=== PATIENT | male | born 1970 | race Caucasian/White ===

== ENCOUNTER 2018-12-22 03:59 | Emergency (ER) | payer SELFPAY ==
[~2018-12-22] VITALS: Ht 182.9 cm; Wt 90.9 kg
[2018-12-22 04:01] VITALS: BP 147/101
[2018-12-22] MEDS ORDERED: INDO50CA96 PO (04:10)
[2018-12-22] MEDS ORDERED: prednisone 10mg tablet PO ONE (04:15)
[2018-12-22] MEDS ORDERED: indomethacin 25mg capsule PO STA (04:15)
[2018-12-22] MEDS ORDERED: colchicine 0.6mg tablet PO ONE ×2 (04:20→05:30)
--- NOTE | 2018-12-22 04:37 | NUR ---
gave him food and milk with his medication.
== END 2018-12-22 05:07 | disposition home or self-care (01) ==
LOC: ER 04:00
DX: M10.9 Gout, unspecified (principal)
CPT/HCPCS: 99284; J7512

== ENCOUNTER 2019-11-24 19:11 | Emergency (ER) | payer OTHER ==
[~2019-11-24] VITALS: Ht 180.3 cm; Wt 88.6 kg
[~2019-11-24 19:11] MED LIST: INDO50CA96 PO
[2019-11-24 19:43] LABS: BASOPHILS # (AUTO) 0.1 X10'3 (0-0.2); BASOPHILS % (AUTO) 0.7 % (0-1); EOSINOPHILS # (AUTO) 0.3 X10'3 (0-0.9); HEMATOCRIT 46.5 % (42.0-52.0); HEMOGLOBIN 15.5 g/dl (14.0-17.9); LYMPHOCYTES # (AUTO) 1.4 X10'3 (1.1-4.8); LYMPHOCYTES % (AUTO) 16.8 % (21-51); MEAN CORPUSCULAR HEMOGLOBIN 30.8 PG (27.0-31.0); MEAN CORPUSCULAR HGB CONC 33.3 g/dL (33.0-36.5); MEAN CORPUSCULAR VOLUME 92.3 FL (78-98); MEAN PLATELET VOLUME 7.8 FL (7.4-10.4); MONOCYTES # (AUTO) 0.8 X10'3 (0-0.9); MONOCYTES % (AUTO) 9.4 % (2-12); NEUTROPHILS # (AUTO) 5.9 X10'3 (1.8-7.7); NEUTROPHILS % (AUTO) 70.1 % (42-75); PLATELET COUNT 282 X10'3 (140-440); RED BLOOD COUNT 5.04 X10'6 (4.70-6.10); RED CELL DISTRIBUTION WIDTH 13.3 % (11.5-14.5); WHITE BLOOD COUNT 8.5 X10'3 (4.5-11.0)
[2019-11-24 19:53] LABS: ALANINE AMINOTRANSFERASE 40 U/L (12-78); ALBUMIN 4.1 G/DL (3.4-5.0); ALBUMIN/GLOBULIN RATIO 1.2 (1.1-1.5); ALKALINE PHOSPHATASE 83 IU/L (46-116); ANION GAP 10 (8-16); ASPARTATE AMINO TRANSFERASE 19 U/L (10-37); BILIRUBIN,TOTAL 0.2 MG/DL (0.1-1.0); BLOOD UREA NITROGEN 20 MG/DL (7-18); BUN/CREATININE RATIO 17.7 (5.4-32.0); CALCIUM 9.2 MG/DL (8.5-10.1); CHLORIDE 105 MMOL/L (99-107); CREATININE 1.13 MG/DL (0.60-1.10); GLUCOSE 140 MG/DL (70-104); POTASSIUM 4.3 MMOL/L (3.5-5.1); SODIUM 142 MMOL/L (135-145); TOTAL CARBON DIOXIDE 27.3 MMOL/L (24-32); TOTAL PROTEIN 7.5 G/DL (6.4-8.2); eGFR 69 ML/MIN
[2019-11-24 20:00] LABS: TROPONIN I < 0.04 NG/ML (0.0-0.05)
[2019-11-24 23:38] VITALS: BP 136/92
== END 2019-11-24 23:43 | disposition home or self-care (01) ==
LOC: ER 19:12
DX: R07.89 Other chest pain (principal); R53.83 Other fatigue; R11.0 Nausea; R06.02 Shortness of breath; M10.9 Gout, unspecified; F17.200 Nicotine dependence, unspecified, uncomplicated; Z72.89 Other problems related to lifestyle; Z79.899 Other long term (current) drug therapy
CPT/HCPCS: 36415; 71045; 80053; 83880; 84484; 85025; 93005; 99285

== ENCOUNTER 2021-09-09 15:49 | Emergency (ER) | payer SELFPAY ==
[~2021-09-09] VITALS: Ht 185.4 cm; Wt 90.9 kg
[2021-09-09] MEDS ORDERED: LORazepam 2 mg/ml vial IV ONE (16:05)
[2021-09-09] MEDS ORDERED: normal saline 1000ml 1,000 ML IV ONE (16:10)
[2021-09-09 16:17] LABS: BASOPHILS # (AUTO) 0.1 X10'3 (0-0.2); BASOPHILS % (AUTO) 0.7 % (0-1); EOSINOPHILS # (AUTO) 0.2 X10'3 (0-0.9); EOSINOPHILS % (AUTO) 2.3 % (0-6); HEMATOCRIT 46.9 % (42.0-52.0); HEMOGLOBIN 15.8 g/dl (14.0-17.9); LYMPHOCYTES # (AUTO) 2.1 X10'3 (1.1-4.8); LYMPHOCYTES % (AUTO) 24.1 % (21-51); MEAN CORPUSCULAR HEMOGLOBIN 30.4 PG (27.0-31.0); MEAN CORPUSCULAR HGB CONC 33.7 g/dL (33.0-36.5); MEAN CORPUSCULAR VOLUME 90.3 FL (78-98); MEAN PLATELET VOLUME 7.8 FL (7.4-10.4); MONOCYTES % (AUTO) 11.6 % (2-12); NEUTROPHILS # (AUTO) 5.3 X10'3 (1.8-7.7); NEUTROPHILS % (AUTO) 61.3 % (42-75); PLATELET COUNT 314 X10'3 (140-440); RED BLOOD COUNT 5.19 X10'6 (4.70-6.10); RED CELL DISTRIBUTION WIDTH 12.8 % (11.5-14.5); WHITE BLOOD COUNT 8.6 X10'3 (4.5-11.0)
[2021-09-09] MEDS ORDERED: bacitracin 15gm ointment TP ONE (16:30)
[2021-09-09] MEDS ORDERED: TETanus/Pertussis (Acell)/Diphther VAC/PF (Tdap-Adult) 0.5ml syringe IMVAC ONE (16:30)
[2021-09-09 16:33] LABS: ALANINE AMINOTRANSFERASE 35 U/L (12-78); ALBUMIN/GLOBULIN RATIO 1.1 (1.1-1.5); ALKALINE PHOSPHATASE 84 IU/L (46-116); ANION GAP 8 (8-16); ASPARTATE AMINO TRANSFERASE 17 U/L (10-37); BILIRUBIN,TOTAL 0.3 MG/DL (0.1-1.0); BLOOD UREA NITROGEN 18 MG/DL (7-18); BUN/CREATININE RATIO 16.2 (5.4-32.0); CALCIUM 9.3 MG/DL (8.5-10.1); CHLORIDE 105 MMOL/L (99-107); CREATININE 1.11 MG/DL (0.60-1.10); GLUCOSE 206 MG/DL (70-104); POTASSIUM 4.4 MMOL/L (3.5-5.1); SODIUM 142 MMOL/L (135-145); TOTAL CARBON DIOXIDE 29.2 MMOL/L (24-32); TOTAL PROTEIN 7.5 G/DL (6.4-8.2); eGFR 70 ML/MIN
[2021-09-09] MEDS ORDERED: LIDOcaine 1% W/epiNEPHrine 1:100,000 20ml vial IJ ONE (16:35)
[2021-09-09 18:36] VITALS: BP 103/73
== END 2021-09-09 18:39 | disposition home or self-care (01) ==
LOC: ER 15:50
DX: S41.111A Laceration without foreign body of right upper arm, initial encounter (principal); W45.8XXA Other foreign body or object entering through skin, initial encounter; Y93.89 Activity, other specified; Y92.89 Other specified places as the place of occurrence of the external cause; Y99.8 Other external cause status
CPT/HCPCS: 12002; 36415; 73100; 80053; 85025; 90471; 90715; 96361; 96374; 99284; J2060; J7030; 99283; A6258; A6446

== ENCOUNTER 2024-08-27 14:38 | Emergency (ER) | payer OTHER ==
[~2024-08-27] VITALS: Ht 180.3 cm; Wt 65.8 kg
[2024-08-27 14:43] VITALS: BP 150/102; PULSE 72; RESP 15; TEMP 98; O2SAT 98
--- NOTE | 2024-08-27 16:49 | Physician Documentation ---
History of Present Illness ~ Chief Complaint: Eye Pain Stated Complaint: EYE IRRITATED Time Seen by MD: 16:26 Primary Medical Doctor: NONE HPI This is a 54-year-old male who presents with pain, redness, irritation, and foreign body sensation in his right eye after some debris fell into his eye two days ago while working on a vehicle. Patient reports light makes the pain worse , though he reports no change in vision. Patient reports no other acute symptoms or concerns. Medication Reconciliation Allergies: Coded Allergies: No Known Allergies (Unverified , 12/22/18) Scheduled Ciprofloxacin Hcl Ophth* (Ciloxan 0.35 Ophth Drops*), 2 DROP RIGHTEYE Q6H Indomethacin (Indomethacin), 1 CAP PO Q8H Past Medical History Past Medical History: No Pertinent History, Gout Past Surgical History: noncontributory Alcohol Use: Sober Drug Use: none Lives with: Spouse Lives In: Home Review of Systems ROS Right eye pain and redness as stated above in the HPI, otherwise all systems are reviewed and negative. Physical Exam Vital Signs: Temperature: 98.0, Source: Temporal, Heart Rate: 72, Respiratory Rate: 15, BP: 150/102, Pulse Oximetry: 98, Weight: 65.800 Physical Exam VITALS: Reviewed and as above. GENERAL: Alert, nontoxic appearing, no apparent distress. HEENT: PERRLA, EOMI without pain, right eye sclera injected, left eye sclera noninjected, punctate foreign body identified in right cornea approximately at the 8 o'clock position, no Kyle sign, fluorescein uptake at area surrounding foreign body otherwise no focal area of fluorescein uptake. Lids mildly erythematous and swollen though no periorbital swelling or erythema. RESPIRATORY: No increased work of breathing, no respiratory distress, speaking in full clear sentences Procedures Eye Procedure Alcaine Drops Administered: Yes Foreign Body/Rust Ring Removal: removal w/ cotton swab, removal w/ needle, other (Used Wood's lamp) Reexamination after removal: abrasion, residual rust ring Cyclogel Drops Administered: right eye Antibiotic Ointment/Drps Admin: right eye Tolerated Procedure Well?: yes, no complications Progress Results/Orders Results/Orders Orders - SIOBHAN GALEANA Eye Procedure (08/27/24 16:49) Completed Orders - SIOBHAN GALEANA Proparacaine Ophth Solution (Alcaine Oph (08/27/24 16:55) Ciprofloxacin Ophth Drops (Ciloxan 0.3% (08/27/24 17:45) Vital Signs 08/27/24 14:43 Temp 98.0 Pulse 72 Resp 15 B/P (MAP) 150/102 Pulse Ox 98 Medical Decision Making Findings This 54-year-old male presented with right eye pain, redness, and foreign body sensation onset two days prior after some debris fell from the bottom of a car while he was working on it, physical exam of the right eye did demonstrate a foreign body to the lateral cornea at the 8 o'clock position not impacting the patient's vision, patient reported no vision changes, additionally on exam is the conjunctiva of the right eye was significantly injected though reassuringly there was no Kyle sign and the only area of fluorescein uptake was at the area surrounding the imbedded foreign body. The eye was anesthetized and utilizing a 27 gauge needle the foreign body was removed successfully, there was evidence of focal fluorescein uptake at the area of the foreign body though no Kyle sign after foreign body removal. Findings are consistent with foreign body of the I and corneal abrasion, patient provided 1st dose of otic antibiotic and discharged with course of otic antibiotics. There was no evidence of periorbital cellulitis or orbital cellulitis. Patient provided home care instructions, follow up instructions, and return to care precautions. Patient instructed to follow up with audit director soon as possible which patient reports he does have an audit director he sees and will follow up with on Thursday. Patient verbalized understanding of all instructions. Eye Diff. Dx: Considerations: Include: [place], Conjuctivits-allergic, Conjuctivitis-bacterial, Conjuctivits-chlamydial, Conjuctivitis-viral, Corneal laceration, Corneal ulceration, Glaucoma, Globe rupture, Hordeolum, Iritis, Orbital cellulitis, Periobital cellulitis, Subconjunctival hem Departure Time of Disposition: 17:58 Disposition: 01 HOME / SELF CARE / HOMELESS Impression: Primary Impression: Foreign body in site on external eye Qualified Codes: T15.91XA - Foreign body on external eye, part unspecified, right eye, initial encounter Additional Impression: Corneal abrasion Qualified Codes: S05.01XA - Injury of conjunctiva and corneal abrasion without foreign body, right eye, initial encounter Condition: Improved Discharge Instructions: Foreign Body, Eye, Corneal Abrasion Additional Instructions: Please use the antibiotic eyedrops as prescribed, follow up with an audit director as soon as possible, please also follow up with your primary care provider in the next few days. Please return to the emergency department for any new or worsening concerning symptoms including but not limited to vision changes or worsening pain. Referrals: NO PRIMARY CARE PROVIDER (PCP) Prescriptions Ciprofloxacin Hcl Ophth* (Ciloxan 0.35 Ophth Drops*) 2.5 Ml Bottle 2 DROP RIGHTEYE Q6H for 5 Days, #5 ML Prov: SIOBHAN GALEANA 08/27/24 Education Educated: Patient Educated regarding: diagnosis, treatment, prognosis, need for follow up Signature Scribe Signature: No scribe Attestation: The note accurately reflects work and decisions made by me.LAURA Larson 08/28/24 02:20 SIOBHAN GALEANA August 27, 2024 16:49
[2024-08-27] MEDS ORDERED: proparacaine 0.5% ophthalmic drops 15ml RIGHTEYE ONE (16:50)
[2024-08-27] MEDS: proparacaine 0.5% ophthalmic drops 15ml RIGHTEYE ONE (17:35)
[2024-08-27] MEDS ORDERED: CIPR2.5D21 RIGHTEYE (17:58)
[2024-08-27] MEDS: ciprofloxacin 0.3% 2.5ml ophthalmic solution RIGHTEYE ONE (18:05)
== END 2024-08-27 18:13 | disposition home or self-care (01) ==
LOC: ER 14:39
DX: Z79.899 Other long term (current) drug therapy (principal); T15.91XA Foreign body on external eye, part unspecified, right eye, initial encounter; S05.01XA Injury of conjunctiva and corneal abrasion without foreign body, right eye, initial encounter; W44.9XXA Unspecified foreign body entering into or through a natural orifice, initial encounter; Y93.89 Activity, other specified; Y92.89 Other specified places as the place of occurrence of the external cause; Y99.8 Other external cause status
CPT/HCPCS: 65220; 99284; J7030